=== PATIENT | female | born 1995 | race Caucasian/White ===

== ENCOUNTER 2016-12-28 20:54 | Emergency (ER) | payer SELFPAY ==
--- NOTE | 2016-12-29 06:25 | ER ---
ADMIT: 12/28/2016 RM/LOC: ER [facility] MR#: [id number] [place], [place] [id number] DANITA EPPERSON [address] [place] [address] Emergency Room Report SEX: F AGE: 21 : 1995 DATE: 12/28/2016 The patient is a 21-year-old female complaining of acute onset of sore throat, headache, fevers, chills, bloody nose yesterday. Denies any prior history of hepatitis. Exam remarkable for nontoxic, afebrile female. Strep and flu screens negative. Elevated AST, ALT, alkaline phosphatase. Normal bilirubin. Acute hepatitis panel pending. Discharged with amoxicillin 1 g p.o. b.i.d. x7 days, first dose in department. Follow up Dr. Timothy Armando next week. Seth Wing MD/ cole JOB #: [id number] CC: Seth Wing MD, Attending Physician Timothy Armando MD, Family Physician Timothy Armando MD
== END 2016-12-29 00:25 | disposition home or self-care (01) ==
LOC: ER 20:54
DX: J03.90 Acute tonsillitis, unspecified (principal); R51 Headache; F17.210 Nicotine dependence, cigarettes, uncomplicated